=== PATIENT | male | born 1985 | race African-American/Black ===

== ENCOUNTER 2018-04-15 23:54 | Emergency (ER) | payer SELFPAY, OTHER ==
[2018-04-16] MEDS: IPRATROPIUM (NEB) 0.5 MG/2.5 ML AMP NEB (00:48)
[2018-04-16] MEDS: ALBUTEROL 0.083% (NEB) 2.5 MG/3 ML AMP NEB (00:48)
[2018-04-16] MEDS: DEXAMETHASONE 10 MG/ML 1 ML INJ PO (00:56)
== END 2018-04-16 01:33 | disposition home or self-care (01) ==
LOC: FTE 23:54
DX: R06.2 Wheezing (principal)
CPT/HCPCS: 94664; 99283-25